=== PATIENT | female | born 1965 | race Caucasian/White ===

== ENCOUNTER → 2021-12-25 12:50 | Outpatient (BNVA) | payer OTHER, SELFPAY | PROVIDERS: PCP Physician Assistant; Visit Provider Nurse Practitioner Family | DX: Z13.89 Encounter for screening for other disorder (principal) ==

== ENCOUNTER 2023-07-21 09:45 | Outpatient (AMB) | payer MEDICAID, SELFPAY ==
--- NOTE | 2023-07-21 09:46 | A.OFFVIS_ITS ---
Intake Intake Visit Reasons: f/u for [facility] last seen for this at [facility] - Conf Intake Note: Pt presents to the office as a telehealth appt today for a follow up CAREN. Allergies No Known Allergies Allergy (Verified 07/21/23 09:49) HPI HPI Comments History of Present Illness Details 58-yr-old female presents for follow-up visit, via telephone (pt was unable [employer] link sent to her). Pt denies any significant medical history changes- denies any new CV dx. Denies usual HTN, SOB, chest pain, or palpitations. She states she is using her PAP machine regularly. Sleeps well use and wakes up refreshed. Her May-Jun compliance report shows She is in need of new filters and tubing. 30 day APAP compliance report, 3 - 07/19/2023, shows: AirCurve 10 [employer]Auto Serial number [id number] Mode Spont I PAP 15 cmH2O EPAP 10 cmH2O Easy-Breathe On Usage: days 30/30 days (100%); >= 4 hours 30 days (100%); < 4 hours 0 days (0%) Residual AHI 0.7/hr PFSH Medical History Asthma Back pain Depression Migraine HLD (hyperlipidemia) Surgical History Hx of hysterectomy Family History Father Cancer Mother Cancer Social History Household Members: None Alcohol intake: current Alcohol intake frequency: does not drink Patient Tobacco Use Status: Never used Tobacco Current occupational status: disabled Female Reproductive History Menstrual control method: diaphragm Review of Systems Const All systems reviewed & are unremarkable except as noted in HPI and below Physical Exam Const General: no acute distress Orientation/consciousness: patient oriented x3 Resp Effort & Inspection: able to speak in complete sentences Neuro General: patient oriented x3 Psych Mental Status: mental status grossly normal Speech and movement: Clear speech present Attitude: cooperative Results Reviewed Results Reviewed: PAP compliance report- see HPI Assessment & Plan Assessment & Plan (1) Obstructive sleep apnea: Comment: On VPAP. Echocardiogram- EF 60-65% (Apr 2020). Code(s): G47.33 - Obstructive sleep apnea (adult) (pediatric) Plan Continue VPAP nightly > 4 hrs as pt is experiencing good clinical effect from use. Echo w/ normal EF in 2019- no new CV s/s. AirCurve 10 VAuto Mode Spont I PAP 15 cmH2O EPAP 10 cmH2O Will request new PAP supplies. F/u in 1 yr or sooner prn. Telehealth Telehealth Location of provider rendering services: practice address Location of patient: address on file Patient Identification confirmed using: Name, : Yes Telehealth method: voice only Patient verbally consented to treatment: Yes Patient verbally consented to billing insurance company: Yes Patient informed of any privacy concerns related to visit: Yes Minutes spent on Phone/Video with Pt.: 6 Coding Level of Care Code Tele Est Pt Level 3 (44717) Diagnoses Obstructive sleep apnea G47.33
== END 2023-07-21 12:18 | disposition home or self-care (01) ==
LOC: HO.HSMS 09:45
PROVIDERS: PCP Physician Assistant; Visit Provider Nurse Practitioner Family
DX: G47.33 Obstructive sleep apnea (adult) (pediatric) (principal)
CPT/HCPCS: 99213

== ENCOUNTER → 2023-07-21 09:45 | Outpatient (BNVA) | payer MEDICAID, SELFPAY | PROVIDERS: PCP Physician Assistant; Visit Provider Nurse Practitioner Family ==

== ENCOUNTER → 2024-06-26 09:20 | Outpatient (BNVA) | payer MEDICAID, SELFPAY | PROVIDERS: PCP Physician Assistant; Visit Provider Nurse Practitioner Family ==

== ENCOUNTER 2024-06-27 13:25 | Outpatient (AMB) | payer MEDICAID, SELFPAY ==
--- NOTE | 2024-06-27 13:21 | MHC.OFFVIS ---
Vital Signs 06/27/24 13:22 Height 5 ft 3 in Weight 181 lb BMI 32.1 Intake Visit Reasons: Follow up Preparer Making Department Required: Yes Accompanied by: Self / Same As Patient Allergies No Known Allergies Allergy (Verified 06/26/24 09:15) HPI Comments Details: 59-yr-old female presents for follow-up visit, via telephone (pt is unable to use [employer] link sent to her). Pt denies any significant medical history changes- denies any new CV dx. Denies usual HTN, SOB, chest pain, or palpitations. She does note that she has had a migraine. She states she is having 1 migraine per month, and is using topiramate 100mg prn. She is not using any specific acute migraine tx's. She is f/b [facility] neurology for migraine. She states she is using her PAP machine regularly. Sleeps well use and wakes up refreshed. Her May-Jun compliance report shows good compliance, sleep hours, and minimal residual AHI. She is in need of new supplies. Supply order signed last week. 30 day APAP compliance report, 05/27/2024 - 06/25/2024, shows: AirCurve 10 [employer] Serial number [id number] Mode Spont I IPAP 15 cmH2O EPAP 10 cmH2O Easy-Breathe On Usage: days 30/30 days (100%), >= 4 hours 30 days (100%); < 4 hours 0 days (0%) Average use, days used: 10 hours 42 minutes Residual AHI 0.4/hr [facility], [facility] Medical History (Updated 06/27/24 @ 21:41 by DARYL Espinoza) Asthma Back pain Depression Migraine HLD (hyperlipidemia) Surgical History Hx of hysterectomy Family History Father Cancer Mother Cancer Social History Household Members: None Alcohol intake: current Alcohol intake frequency: does not drink Patient Tobacco Use Status: Never used Tobacco Current occupational status: disabled Physical Exam Vital Signs: BMI result Body Mass Index 32.1 Const General: no acute distress Orientation/consciousness: patient oriented x3 Resp Effort & Inspection: able to speak in complete sentences Neuro General: patient oriented x3 Psych Mental Status: mental status grossly normal Speech and movement: Clear speech present Attitude: cooperative Telehealth Telehealth Telehealth Platform: Telephone Location of provider rendering services: practice address Location of patient: address on file Patient Identification confirmed using: Name, : Yes Telehealth method: voice only Patient verbally consented to treatment: Yes Patient verbally consented to billing insurance company: Yes Patient informed of any privacy concerns related to visit: Yes Minutes spent on Phone/Video with Pt.: 11 Assessment & Plan Assessment & Plan (1) Obstructive sleep apnea: Comment: On VPAP. Echocardiogram- EF 60-65% (Apr 2020). Code(s): G47.33 - Obstructive sleep apnea (adult) (pediatric) Category: Medical (2) Migraine: Code(s): G43.909 - Migraine, unspecified, not intractable, without status migrainosus Category: Medical Plan For CAREN: Will request most recent echocardiogram reports. For now, continue VPAP nightly > 4 hrs as pt is experiencing good clinical effect from use. Echo w/ normal EF in 2019. AirCurve 10 VAuto Mode Spont I PAP 15 cmH2O EPAP 10 cmH2O New PAP supplies already requested. Continue to clean and change PAP supplies routinely. Discussed w/ pt that topiramate is not an acute migraine tx. As she has had a previous MS, she is not a candidate to ventura triptans or DHE. However, if the topiramate stops working, she can consider trying a gepant. F/u in 1 yr or sooner prn. Coding Level of Care Code Tele Est Pt Level 4 (69661) Diagnoses Obstructive sleep apnea G47.33 Migraine G43.909
[2024-06-27 13:22] VITALS: BMI 32.1
== END 2024-06-27 14:10 | disposition home or self-care (01) ==
LOC: HO.HSMS 13:26
PROVIDERS: PCP Physician Assistant; Visit Provider Nurse Practitioner Family
DX: G47.33 Obstructive sleep apnea (adult) (pediatric) (principal); G43.909 Migraine, unspecified, not intractable, without status migrainosus
CPT/HCPCS: 99214